=== PATIENT | female | born 1965 | race Caucasian/White ===

== ENCOUNTER 2018-03-04 08:46 | Emergency (ER) | payer OTHER ==
[~2018-03-04] VITALS: Ht 152.4 cm; Wt 96.2 kg
[2018-03-04 11:19] VITALS: BP 140/90
== END 2018-03-04 11:19 | disposition home or self-care (01) ==
LOC: ED 08:46
DX: M62.838 Other muscle spasm (principal); I10 Essential (primary) hypertension
CPT/HCPCS: J1885

== ENCOUNTER 2018-08-15 09:18 | Emergency (ER) | payer OTHER ==
[~2018-08-15] VITALS: Ht 152.4 cm; Wt 0.9 kg
[2018-08-15 09:22] VITALS: Ht 152.4 cm; Wt 0.9 kg
[2018-08-15 11:04] VITALS: BP 148/88
== END 2018-08-15 11:04 | disposition home or self-care (01) ==
LOC: ED 09:18
DX: S16.1XXA Strain of muscle, fascia and tendon at neck level, initial encounter (principal); M54.6 Pain in thoracic spine; I10 Essential (primary) hypertension; E78.00 Pure hypercholesterolemia, unspecified; X58.XXXA Exposure to other specified factors, initial encounter; Y93.89 Activity, other specified; Y92.89 Other specified places as the place of occurrence of the external cause; Y99.8 Other external cause status
CPT/HCPCS: J1885